=== PATIENT | male | born 1985 | race Two or more races ===

== ENCOUNTER 2016-08-04 21:04 | Emergency (ER) | payer SELFPAY ==
[~2016-08-04] VITALS: Ht 188 cm; Wt 90.7 kg
[2016-08-04 21:04] VITALS: BP_SYST 153
[2016-08-04 22:11] VITALS: BP_SYST 142
== END 2016-08-04 22:11 ==
LOC: SED 21:04
DX: S42.002A Fracture of unspecified part of left clavicle, initial encounter for closed fracture (principal); V43.92XA Unspecified car occupant injured in collision with other type car in traffic accident, initial encounter; Y93.89 Activity, other specified; Y92.89 Other specified places as the place of occurrence of the external cause; Y99.8 Other external cause status
CPT/HCPCS: 73030; 99284